=== PATIENT | female | born 1985 | race Two or more races ===

== ENCOUNTER 2019-07-21 10:50 | Emergency (ER) | payer MEDICAID ==
[2019-07-21] MEDS ORDERED: Ketorolac 60 MG/2 ML SDV IM ONE (11:10)
--- NOTE | 2019-07-21 11:14 | EDM.PDOC ---
ED HPI GENERAL MEDICAL PROBLEM - General Chief Complaint: Neck Problem Stated Complaint: LEFT NECK PAIN Time Seen by Provider: 07/21/19 10:53 Source of Information: Reports: Patient History Limitations: Reports: No Limitations - History of Present Illness INITIAL COMMENTS - FREE TEXT/NARRATIVE: HISTORY AND PHYSICAL: History of present illness: Patient is a 34-year-old female who presents to the ED today with concern of neck pain over the past 2 weeks. Patient denies any trauma or injury to the neck but states that she has had a generalized soreness of her neck over the past 2 weeks. Patient states she has tried ibuprofen and Tylenol as long as icing and heat without relief of symptoms. Patient denies any associated symptoms and states she has a history of tubal ligation. Patient denies any other symptoms or concerns. Patient denies fever, chills, chest pain, shortness of breath, or cough. Denies headache, change in vision, syncope, or near syncope. Denies nausea, vomiting, abdominal pain, diarrhea, constipation, or dysuria. Has not noted any blood in urine or stool. Patient has been eating and drinking appropriately. Review of systems: As per history of present illness and below otherwise all systems reviewed and negative. Past medical history: As per history of present illness and as reviewed below otherwise noncontributory. Surgical history: As per history of present illness and as reviewed below otherwise noncontributory. Social history: See social history for further information Family history: As per history of present illness and as reviewed below otherwise noncontributory. Physical exam: General: Patient is alert, oriented, and in no acute distress. Patient sitting comfortably on exam table. HEENT: Atraumatic, normocephalic, pupils equal and reactive bilaterally, negative for conjunctival pallor or scleral icterus, mucous membranes moist, TMs normal bilaterally, throat clear, neck supple, nontender, trachea midline. No drooling or trismus noted. No meningeal signs. No hot potato voice noted. Lungs: Clear to auscultation, breath sounds equal bilaterally, chest nontender. Heart: S1S2, regular rate and rhythm without overt murmur Abdomen: Soft, nondistended, nontender. Negative for masses or hepatosplenomegaly. Negative for costovertebral tenderness. Pelvis: Stable nontender. Genitourinary: Deferred. Rectal: Deferred. Skin: Intact, warm, dry. No lesions or rashes noted. Extremities/musculoskeletal: Atraumatic, negative for cords or calf pain. Neurovascular unremarkable. No obvious deformity of the complete spine. No step-offs, crepitus, or point tenderness to palpation of the complete spine. Patient does have mild tenderness with palpation of the left-sided trapezius muscle of the neck. Neuro: Awake, alert, oriented. Cranial nerves II through XII unremarkable. Cerebellum unremarkable. Motor and sensory unremarkable throughout. Exam nonfocal. Notes: Discussed importance for follow-up with a primary care provider. Voices understanding and is agreeable to plan of care. Denies any further questions or concerns at this time. Diagnostics: Cervical spine x-ray Therapeutics: Toradol, Norflex Prescription: Diclofenac, Flexeril Impression: Neck pain Plan: 1. Rest, ice, elevate the affected area. You can apply ice and or heat 15 minutes on, 15 minutes off. 2. Tylenol as directed for pain management or discomfort. Take medication as prescribed. 3. Follow up with the primary care provider as discussed. Return to the ED as needed and as discussed. Definitive disposition and diagnosis as appropriate pending reevaluation and review of above. neck Pain Score (Numeric/FACES): 8 - Related Data Allergies Allergy/AdvReac Type Severity Reaction Status Date / Time No Known Allergies Allergy Verified 07/21/19 11:06 Home Meds: Home Meds Cyclobenzaprine [Flexeril] 10 mg PO TID PRN #9 tab 07/21/19 [Rx] Diclofenac Sodium [Voltaren] 75 mg PO BIDMEALS PRN #15 tab.cr 07/21/19 [Rx] Past Medical History - Past Health History Medical/Surgical History: Denies Medical/Surgical History [employer] History: Reports: - Past Surgical History Female Surgical History: Reports: Tubal Ligation Social & Family History - Family History Family Medical History: Noncontributory - Tobacco Use Smoking Status *Q: Never Smoker - Recreational Drug Use Recreational Drug Use: No ED ROS GENERAL - Review of Systems Review Of Systems: Comprehensive ROS is negative, except as noted in HPI. ED EXAM, GENERAL - Physical Exam Exam: See Below (see dictation) Course - Vital Signs Last Recorded V/S: Last Vital Signs Temp 97.2 F 07/21/19 11:02 Pulse 71 07/21/19 11:02 Resp 18 07/21/19 11:02 BP 153/89 H 07/21/19 11:02 Pulse Ox 99 07/21/19 11:02 - Orders/Labs/Meds Meds: Medications Discontinued Medications Generic Name Dose Route Start Last Admin Trade Name Freq PRN Reason Stop Dose Admin Ketorolac Tromethamine 60 mg 07/21/19 11:10 07/21/19 11:26 Toradol IM 07/21/19 11:11 60 mg ONETIME ONE Administration Orphenadrine Citrate 60 mg 07/21/19 11:10 07/21/19 11:26 Norflex IM 07/21/19 11:11 60 mg ONETIME ONE Administration Departure - Departure Time of Disposition: 12:21 Disposition: Home, Self-Care 01 Clinical Impression: Neck pain - Discharge Information Prescriptions: Cyclobenzaprine [Flexeril] 10 mg PO TID PRN #9 tab PRN Reason: Spasms Diclofenac Sodium [Voltaren] 75 mg PO BIDMEALS PRN #15 tab.cr PRN Reason: Pain Referrals: PCP,None [Primary Care Provider] - Forms: ED Department Discharge Additional Instructions: The following information is given to patients seen in the emergency department who are being discharged to home. This information is to outline your options for follow-up care. We provide all patients seen in our emergency department with a follow-up referral. The need for follow-up, as well as the timing and circumstances, are variable depending upon the specifics of your emergency department visit. If you don't have a primary care physician on staff, we will provide you with a referral. We always advise you to contact your personal physician following an emergency department visit to inform them of the circumstance of the visit and for follow-up with them and/or the need for any referrals to a consulting specialist. The emergency department will also refer you to a specialist when appropriate. This referral assures that you have the opportunity for follow-up care with a specialist. All of these measure are taken in an effort to provide you with optimal care, which includes your follow-up. Under all circumstances we always encourage you to contact your private physician who remains a resource for coordinating your care. When calling for follow-up care, please make the office aware that this follow-up is from your recent emergency room visit. If for any reason you are refused follow-up, please contact the [facility] Emergency Department at and asked to speak to the emergency department charge nurse. [facility] [address] [place] [address] [facility] [address] [place] [id number] 1. Rest, ice, elevate the affected area. You can apply ice and or heat 15 minutes on, 15 minutes off. 2. Tylenol as directed for pain management or discomfort. Take medication as prescribed. 3. Follow up with the primary care provider as discussed. Return to the ED as needed and as discussed. Sepsis Event Note - Evaluation Sepsis Screening Result: No Definite Risk - Focused Exam Vital Signs: Vital Signs Temp Pulse Resp BP Pulse Ox 07/21/19 11:02 97.2 F 71 18 153/89 H 99 Date Exam was Performed: 07/21/19 Time Exam was Performed: 12:21
--- NOTE | 2019-07-21 12:17 | CR ---
Cervical spine: AP, lateral and odontoid views of the cervical spine were obtained. Comparison: No prior cervical spine imaging is available. Findings: Vertebral body heights and disc spaces are maintained. Prevertebral soft tissues are normal. No subluxation or fracture is appreciated. Impression: 1. No abnormality is identified on 3 view cervical spine exam. Diagnostic code #1 This report was dictated in [place] Standard Time
== END 2019-07-21 12:49 | disposition home or self-care (01) ==
LOC: MW.ED 10:50
DX: M54.2 Cervicalgia (principal); Z98.51 Tubal ligation status
CPT/HCPCS: 72040; 96372; 99283; J1885; J2360

== ENCOUNTER 2019-07-29 15:02 | Emergency (ER) | payer MEDICAID, OTHER ==
[2019-07-29] MEDS ORDERED: Sodium Chloride 0.9% 10 ML Syringe FLUSH PRN (15:04)
[2019-07-29] MEDS ORDERED: Sodium Chloride 0.9% 2.5 ML Syringe FLUSH PRN (15:04)
[2019-07-29] MEDS ORDERED: Ketorolac 60 MG/2 ML SDV IVPUSH ONE (15:04)
--- NOTE | 2019-07-29 15:04 | EDM.PDOC ---
ED HPI GENERAL MEDICAL PROBLEM - General Chief Complaint: Upper Extremity Injury/Pain Stated Complaint: ARM INJURY Time Seen by Provider: 07/29/19 15:04 Source of Information: Reports: Patient History Limitations: Reports: No Limitations - History of Present Illness INITIAL COMMENTS - FREE TEXT/NARRATIVE: HISTORY AND PHYSICAL: History of present illness: Patient is a 34-year-old female presents the ED with complaint of right wrist injury. She states that just prior to arrival to the ED she slipped on the ice falling backwards and attempting to catch herself with her right hand. She denies proximal elbow pain or distal numbness or tingling. She denies head or other injury and has no other complaints at this time. Review of systems: As per history of present illness and below otherwise all systems reviewed and negative. Past medical history: As per history of present illness and as reviewed below otherwise noncontributory. Surgical history: As per history of present illness and as reviewed below otherwise noncontributory. Social history: No reported history of drug or alcohol abuse. Family history: As per history of present illness and as reviewed below otherwise noncontributory. Physical exam: General: Patient sitting comfortably in no acute distress and nontoxic appearing HEENT: Atraumatic, normocephalic, pupils reactive, negative for conjunctival pallor or scleral icterus, mucous membranes moist, throat clear, neck supple, nontender, trachea midline. No meningeal signs. Lungs: Clear to auscultation, breath sounds equal bilaterally, chest nontender. Heart: S1S2, regular, negative for clicks, rubs, or overt murmur. Abdomen: Soft, nondistended, nontender. Negative for masses or hepatosplenomegaly. Negative for costovertebral tenderness. No rigidity, rebound , guarding. Pelvis: Stable nontender. Genitourinary: Deferred. Rectal: Deferred. Extremities: Swelling noted over the dorsal aspect of the distal radius and ulna with pain to palpation. Skin is intact. CMS intact distally atraumatic, negative for cords or calf pain. Neurovascular unremarkable. Neuro: Awake, alert, oriented. Cranial nerves II through XII unremarkable. Cerebellum unremarkable. Motor and sensory unremarkable throughout. Exam nonfocal. Notes: Dr. Madison was present in the ED at the time he was curb sided. He did evaluate patient's x-ray and advised to put her in a splint and have him follow- up with him in his clinic. Diagnostics: Right wrist Therapeutics: Toradol 30mg IV Bland 5/325mg PO Custom post mold short arm splint placed by nursing staff Prescriptions: Bland (#12) Impression: Distal radius and ulna fracture Plan: 1. Ice, elevate, and motrin as needed. You may take norco as needed for severe pain, do not take while driving as it may make you drowsy. 2. Follow up with orthopedics on Wednesday (08/01/2019), please call the number provided to schedule an appointment 3. Return to ED as needed as discussed Definitive disposition and diagnosis as appropriate pending reevaluation and review of above. right wrist Pain Score (Numeric/FACES): 9 - Related Data Allergies Allergy/AdvReac Type Severity Reaction Status Date / Time No Known Allergies Allergy Verified 07/29/19 15:18 Home Meds: Home Meds . [No Known Home Meds] 07/29/19 [History] Past Medical History - Past Health History Medical/Surgical History: Denies Medical/Surgical History [employer] History: Reports: - Past Surgical History Female Surgical History: Reports: Tubal Ligation Social & Family History - Family History Family Medical History: Noncontributory Review of Systems - Review of Systems Review Of Systems: Comprehensive ROS is negative, except as noted in HPI. ED EXAM, GENERAL - Physical Exam Exam: See Below (see dictation) Course - Vital Signs Last Recorded V/S: Last Vital Signs Temp 97.0 F 07/29/19 15:16 Pulse 85 07/29/19 15:16 Resp 20 07/29/19 15:16 BP 156/109 H 07/29/19 15:16 Pulse Ox 100 07/29/19 15:16 - Orders/Labs/Meds Orders: Active Orders 24 hr Category Date Time Status Acetaminophen/HYDROcodone [Bland 325-5 MG] Med 07/29/19 16:00 Once 1 tab PO ONETIME ONE Sodium Chloride 0.9% [Saline Flush] Med 07/29/19 15:04 Ordered 10 ml FLUSH ASDIRECTED PRN Sodium Chloride 0.9% [Saline Flush] Med 07/29/19 15:04 Ordered 2.5 ml FLUSH ASDIRECTED PRN Saline Lock Insert [OM.PC] Stat Oth 07/29/19 15:04 Ordered Medication Orders Sodium Chloride (Saline Flush) 10 ml FLUSH ASDIRECTED PRN PRN Reason: Keep Vein Open Sodium Chloride (Saline Flush) 2.5 ml FLUSH ASDIRECTED PRN PRN Reason: Keep Vein Open Meds: Medications Generic Name Dose Route Start Last Admin Trade Name Freq PRN Reason Stop Dose Admin Sodium Chloride 10 ml 07/29/19 15:04 Saline Flush FLUSH ASDIRECTED PRN Keep Vein Open Sodium Chloride 2.5 ml 07/29/19 15:04 Saline Flush FLUSH ASDIRECTED PRN Keep Vein Open Discontinued Medications Generic Name Dose Route Start Last Admin Trade Name Freq PRN Reason Stop Dose Admin Ketorolac Tromethamine 60 mg 07/29/19 15:04 07/29/19 15:27 Toradol IVPUSH 07/29/19 15:05 60 mg ONETIME ONE Administration Departure - Departure Time of Disposition: 16:03 Disposition: Home, Self-Care 01 Condition: Good Clinical Impression: Closed fracture distal radius and ulna - Discharge Information Forms: ED Department Discharge Additional Instructions: The following information is given to patients seen in the emergency department who are being discharged to home. This information is to outline your options for follow-up care. We provide all patients seen in our emergency department with a follow-up referral. The need for follow-up, as well as the timing and circumstances, are variable depending upon the specifics of your emergency department visit. If you don't have a primary care physician on staff, we will provide you with a referral. We always advise you to contact your personal physician following an emergency department visit to inform them of the circumstance of the visit and for follow-up with them and/or the need for any referrals to a consulting specialist. The emergency department will also refer you to a specialist when appropriate. This referral assures that you have the opportunity for follow-up care with a specialist. All of these measure are taken in an effort to provide you with optimal care, which includes your follow-up. Under all circumstances we always encourage you to contact your private physician who remains a resource for coordinating your care. When calling for follow-up care, please make the office aware that this follow-up is from your recent emergency room visit. If for any reason you are refused follow-up, please contact the [facility] Emergency Department at and asked to speak to the emergency department charge nurse. [facility] Special[facility] - Orthopedic Clinic Professional Building [address] [place] [address], [address] [place] [address] 1. Ice, elevate, and motrin as needed. You may take norco as needed for severe pain, do not take while driving as it may make you drowsy. 2. Follow up with orthopedics Dr. Madison on Wednesday (08/01/2019), please call the number provided to schedule an appointment 3. Return to ED as needed as discussed Sepsis Event Note - Focused Exam Vital Signs: Vital Signs Temp Pulse Resp BP Pulse Ox 07/29/19 15:16 97.0 F 85 20 156/109 H 100 Date Exam was Performed: 07/29/19 Time Exam was Performed: 16:00 - My Orders Last 24 Hours: My Active Orders 07/29/19 15:04 Sodium Chloride 0.9% [Saline Flush] 10 ml FLUSH ASDIRECTED PRN Sodium Chloride 0.9% [Saline Flush] 2.5 ml FLUSH ASDIRECTED PRN Saline Lock Insert [OM.PC] Stat 07/29/19 16:00 Acetaminophen/HYDROcodone [Bland 325-5 MG] 1 tab PO ONETIME ONE - Assessment/Plan Last 24 Hours: My Active Orders 07/29/19 15:04 Sodium Chloride 0.9% [Saline Flush] 10 ml FLUSH ASDIRECTED PRN Sodium Chloride 0.9% [Saline Flush] 2.5 ml FLUSH ASDIRECTED PRN Saline Lock Insert [OM.PC] Stat 07/29/19 16:00 Acetaminophen/HYDROcodone [Bland 325-5 MG] 1 tab PO ONETIME ONE
--- NOTE | 2019-07-29 15:55 | CR ---
Right wrist: 3 views of the right wrist are obtained. Comparison: No previous right wrist study. Fracture is identified within the distal radius. Fracture is mostly metaphyseal in location with slight epiphyseal extension. Mild posterior impaction is seen with slight dorsal tilt of the distal radial articular margin. Minimal calcification is seen off the ulnar styloid process possibly due to additional small chip fracture. No additional bony abnormality is appreciated. Soft tissue swelling is noted. Impression: 1. Distal radial fracture as noted above. 2. Equivocal small chip fracture off the ulnar styloid process. 3. Soft tissue swelling. Diagnostic code #3 This report was dictated in [place] Standard Time
[2019-07-29] MEDS ORDERED: Acetaminophen/HYDROcodone 325-5 MG Tab PO ONE (16:00)
== END 2019-07-29 16:36 | disposition home or self-care (01) ==
LOC: MW.ED 15:02
DX: S52.501A Unspecified fracture of the lower end of right radius, initial encounter for closed fracture (principal); S52.601A Unspecified fracture of lower end of right ulna, initial encounter for closed fracture; W01.0XXA Fall on same level from slipping, tripping and stumbling without subsequent striking against object, initial encounter
CPT/HCPCS: 29125; 73110; 96374; 99283; A9270; J1885

== ENCOUNTER 2021-11-16 13:05 | Emergency (ER) | payer BC ==
[2021-11-16] MEDS ORDERED: LORazepam 2 MG/ML SDV IM ONE (14:07)
== END 2021-11-16 16:00 | disposition home or self-care (01) ==
LOC: MW.ED 13:05
DX: F32.A Depression, unspecified (principal); F41.9 Anxiety disorder, unspecified; Z86.16 Personal history of COVID-19
CPT/HCPCS: 96372; 99283; J2060

== ENCOUNTER 2021-11-18 08:53 | Emergency (ER) | payer BC ==
[2021-11-18] MEDS ORDERED: Dexamethasone 10 MG/ML SDV IM STA (09:46)
[2021-11-18] MEDS ORDERED: Famotidine 20 MG Tab PO STA (09:46)
[2021-11-18] MEDS ORDERED: diphenhydrAMINE 50 MG Cap PO STA (09:46)
== END 2021-11-18 10:29 | disposition home or self-care (01) ==
LOC: MW.ED 08:53
DX: L50.9 Urticaria, unspecified (principal); Z79.899 Other long term (current) drug therapy; Z86.16 Personal history of COVID-19
CPT/HCPCS: 96372; 99282; A9270; J1100

== ENCOUNTER 2022-10-26 19:15 | Emergency (ER) | payer BC | END 2022-10-26 20:03 | disposition left against medical advice (07) | LOC: MW.ED 19:15 | DX: Z53.21 Procedure and treatment not carried out due to patient leaving prior to being seen by health care provider (principal) ==

== ENCOUNTER 2023-03-03 18:01 | Emergency (ER) | payer BC, MEDICAID ==
[2023-03-03] MEDS ORDERED: Tetracaine HCl/PF 0.5% 4 ML Bottle EYERT STA (18:56)
== END 2023-03-03 19:47 | disposition home or self-care (01) ==
LOC: MW.ED 18:01
DX: H00.011 Hordeolum externum right upper eyelid (principal); Z86.16 Personal history of COVID-19; Z88.8 Allergy status to other drugs, medicaments and biological substances
CPT/HCPCS: 99282; 99283; J3490

== ENCOUNTER 2023-04-22 18:28 | Emergency (ER) | payer BC, MEDICAID ==
[2023-04-22] MEDS ORDERED: Sodium Chloride 0.9% 10 ML Syringe FLUSH PRN (18:56)
[2023-04-22] MEDS ORDERED: Sodium Chloride 0.9% 2.5 ML Syringe FLUSH PRN (18:56)
[2023-04-22 20:11] LABS: BASOPHILS ABSOLUTE AUTO 0.08 K/uL (0.00-0.20); BASOPHILS PERCENT AUTO 0.7 % (0.0-1.0); EOSINOPHILS ABSOLUTE AUTO 0.55 K/uL (0.00-0.45); HEMOGLOBIN 13.2 g/dL (12.0-16.0); LYMPHOCYTES ABSOLUTE AUTO 3.86 K/uL (1.00-4.80); LYMPHOCYTES PERCENT AUTO 35.4 % (24.0-44.0); MEAN CORPUSCULAR HEMOGLOBIN 26.9 pg (28.0-32.0); MEAN CORPUSCULAR HGB CONC 33.8 g/dL (32.0-36.0); MEAN CORPUSCULAR VOLUME 79.4 fL (83.0-99.0); MEAN PLATELET VOLUME 10.3 fL (9.4-12.3); MONOCYTES ABSOLUTE AUTO 0.49 K/uL (0.00-0.80); MONOCYTES PERCENT AUTO 4.5 % (0.0-8.0); NEUTROPHILS ABSOLUTE AUTO 5.9 K/uL (1.8-7.7); NEUTROPHILS PERCENT AUTO 54.2 % (41.0-71.0); PLATELET COUNT,PLT 308 K/uL (150-400); RED BLOOD CELL COUNT 4.91 M/uL (4.10-5.30); WHITE BLOOD CELL COUNT,WBC 10.91 K/uL (3.9-11.3)
[2023-04-22] MEDS ORDERED: Alum Hydro/Mag Hydro/Simeth XS 15 ML, Lidocaine 2% 5 ML PO STA ×2 (20:50)
[2023-04-22] MEDS ORDERED: Ketorolac 10 MG Tab PO STA (20:50)
[2023-04-22 21:13] LABS: CORONAVIRUS COVID-19 NAA NEGATIVE (NEGATIVE); INFLUENZA A NAA NEGATIVE (NEGATIVE); INFLUENZA B NAA NEGATIVE (NEGATIVE)
[2023-04-22 21:33] LABS: A/G RATIO 1.1 (0.9-1.6); ALBUMIN 4.1 g/dL (3.4-5.0); BILIRUBIN TOTAL 0.7 mg/dL (0.2-1.0); CALCIUM 8.8 mg/dL (8.5-10.1); CREATININE 0.7 mg/dL (0.6-1.0); EST CRCL DRUG DOSING (CG) 100.94 mL/min; POTASSIUM,K 3.7 mmol/L (3.5-5.1); PROTEIN TOTAL,TP 7.9 g/dL (6.4-8.2)
== END 2023-04-22 21:53 | disposition home or self-care (01) ==
LOC: MW.ED 18:28
DX: M94.0 Chondrocostal junction syndrome [Tietze] (principal); Z88.8 Allergy status to other drugs, medicaments and biological substances; Z86.16 Personal history of COVID-19; Z20.822 Contact with and (suspected) exposure to COVID-19
CPT/HCPCS: 0240U; 36415; 71046; 80053; 83690; 83735; 84484; 84703; 85025; 93005; 99285; A9270; 93010; 99283

== ENCOUNTER 2023-10-09 18:56 | Emergency (ER) | payer BC, MEDICAID ==
[2023-10-09] MEDS: Codeine/guaiFENesin 10-100 MG/5 ML Syrup 5 ML Cup PO ONE (20:07)
[2023-10-09 20:26] LABS: CORONAVIRUS COVID-19 NAA NEGATIVE (NEGATIVE); INFLUENZA A NAA NEGATIVE (NEGATIVE); INFLUENZA B NAA NEGATIVE (NEGATIVE); RESPIRATORY SYNCYTIAL VIR NAA NEGATIVE (NEGATIVE)
== END 2023-10-09 20:57 | disposition home or self-care (01) ==
LOC: MW.ED 18:56
DX: J06.9 Acute upper respiratory infection, unspecified (principal); Z86.16 Personal history of COVID-19; Z88.8 Allergy status to other drugs, medicaments and biological substances; Z75.8 Other problems related to medical facilities and other health care; Z79.899 Other long term (current) drug therapy
CPT/HCPCS: 0241U; 71045; 99285; A9270; 99283